=== PATIENT | female | born 1930 | race Caucasian/White ===

== ENCOUNTER 2017-03-30 11:46 | Emergency (ER) | payer MEDICARE ==
[~2017-03-30] VITALS: Ht 152.4 cm; Wt 66.0 kg
[~2017-03-30 11:46] MED LIST: ASPIRIN LOW81 M1 PO; CHOLESTERO4 PO; MECLIZINE12.5 M1 PO; MEDDOSEPAK PO; METOPROLOL TART50 MG PO; SIMVASTATIN10 MG PO; STATIN; ZITHROMAX250 MG PO; [UNRECOGNIZED DRUG - OTHER] PO
[2017-03-30] MEDS ORDERED: ULTRAM50 M1 PO (13:00)
[2017-03-30 13:16] VITALS: BP 145/73
== END 2017-03-30 13:52 | disposition home or self-care (01) ==
LOC: ED 11:46
DX: M17.11 Unilateral primary osteoarthritis, right knee (principal); M25.561 Pain in right knee

== ENCOUNTER 2018-07-28 22:40 | Emergency (ER) | payer MEDICARE ==
[~2018-07-28] VITALS: Ht 152.4 cm; Wt 55.0 kg
[~2018-07-28 22:40] MED LIST changes: +ULTRAM50 M1 PO
[2018-07-28] MEDS ORDERED: VOLTAREN - GENE75 MG PO (23:59)
[2018-07-29 00:20] VITALS: BP 149/80
== END 2018-07-29 00:20 | disposition home or self-care (01) ==
LOC: ED 22:40
DX: M16.0 Bilateral primary osteoarthritis of hip (principal); M25.552 Pain in left hip; M25.551 Pain in right hip